=== PATIENT | male | born 1940 | race Caucasian/White ===

== ENCOUNTER → 2016-06-13 | Outpatient (CLI) | payer MEDICARE ==
[~2016-06-13] VITALS: Ht 177.8 cm; Wt 80.0 kg
[~2016-06-13] MED LIST: ASPI-557 PO; LEVO500T63 PO; PRAV80TA23 PO; REGADENOSON 0.4mg/5ml INJECTION IV ONE; SALINE FLUSH 10ml SYRINGE ONE; TAMS-1 PO; [UNRECOGNIZED DRUG - CODE] PO
--- NOTE | 2016-06-14 18:41 | ADENOSINEF ---
MYOVIEW PROCEDURE SCAN DATE OF PROCEDURE 06/13/2016 NARRATIVE OF PROCEDURE Mr. Velazquez exercised for a total of 4 minutes 47 seconds on an accelerated Khang protocol. His resting blood pressure was 151/100, resting heart rate 79. He exercised to a heart rate of 137 which is 95% of his target heart rate. His maximal blood pressure was 229/102. His baseline heart rate was 79. His baseline EKG showed nonspecific ST-T-wave changes with an incomplete right bundle branch block and LVH with repolarization changes. With exercise he had marked ST-segment depression in leads I, II, III, F and V3 through V6. These are most likely due to his LVH with repolarization but constitutes a positive treadmill test.. Scintigraphically the patient was imaged post exercise and again at rest. Post-exercise views show no evidence of perfusion defect. Rest views were also normal. Ejection fraction is between 52% and 65%. CONCLUSION 1. Clinically negative for ischemia as patient did not experience chest pain. 2. Electrocardiographically positive for ischemia, most likely due to baseline EKG changes. 3. Hypertensive blood pressure response to exercise. The patient was off medication. 4. Scintigraphically negative for ischemia with well-preserved ejection fraction and no wall motion abnormalities noted. 5. Good exercise tolerance for age. 6. Ejection fraction 52% to 65% with no wall motion abnormalities noted. MTDD
== END ==
LOC: IMA 08:29
PROVIDERS: ATTEND Internal Medicine Cardiovascular Disease
DX: I25.10 Atherosclerotic heart disease of native coronary artery without angina pectoris (principal); R94.39 Abnormal result of other cardiovascular function study
CPT/HCPCS: 78452; 93017; A9502